=== PATIENT | male | born 1935 | race Caucasian/White ===

== ENCOUNTER 2017-08-03 14:35 | Inpatient (IN) | payer OTHER, MEDICAID ==
[~2017-08-03] VITALS: Ht 180.3 cm; Wt 83.9 kg
[~2017-08-03 14:35] MED LIST: ATENOLO PO; ATENOLOL50 MG PO; BUS5 PO; DICLOFENAC SODI75 MG PO; FLO4 PO; GLU850 PO; LIPI10 PO; LISINOPRIL AND1 TA2 PO; LISINOPRIL-HYDR1 TA1 PO; LORAZEPAM0.5 MG PO; METFORMIN HCL1000 MG PO; OMEPRAZOLE DR20 M1 PO; PAROXETINE HCL20 M1 PO; PAX20 PO; PRI20 PO; VOL50 PO
[2017-08-03 15:18] LABS: BASOPHIL % 0.5 % (0-2); PLATELET COUNT 349 x10^3mcL (130-400)
[2017-08-03 15:22] LABS: RED CELL DISTRIBUTION WIDTH 14.8 % (11.5-14.5)
[2017-08-03 15:25] LABS: CALCIUM 8.9 mg/dL (8.5-10.1); CARBON DIOXIDE 22.3 mmol/L (21-32); CHLORIDE SERUM 104 mmol/L (98-107); GLUCOSE SERUM 123 mg/dL (74-106); POTASSIUM SERUM 3.6 mmol/L (3.5-5.1); SODIUM SERUM 140 mmol/L (136-145)
[2017-08-03 15:30] LABS: ALBUMIN 3.3 g/dL (3.4-5.0); ALKALINE PHOSPHATASE 99 U/L (46-116); ALT/SGPT 21 U/L (16-63); AST/SGOT 17 U/L (15-37); BILIRUBIN TOTAL 0.5 mg/dL (0.20-1.00); CHOLESTEROL 148 mg/dL (<200); TOTAL PROTEIN, SERUM 6.7 g/dL (6.4-8.2)
[2017-08-03] MEDS ORDERED: DONEPEZIL HYDRO10 M2 PO (16:42)
[2017-08-03] MEDS ORDERED: B COMPLEX1 SGL PO (16:42)
[2017-08-03] MEDS ORDERED: SEROQUEL25 MG PO (16:42)
[2017-08-03] MEDS ORDERED: MASON NATURAL1000 IU PO (16:43)
[2017-08-03] MEDS ORDERED: ASPIR 8181 MG PO (16:43)
[2017-08-03] MEDS ORDERED: PHARMASSURE FO0.4 MG PO (16:43)
[2017-08-03 18:22] VITALS: BP 197/132
[2017-08-03 19:08] LABS: FREE T4 1.04 ng/dL (0.76-1.46); FREE THYROXINE INDEX 3.2 ug/dL (1.4-4.5); T4(THYROXINE) 9.4 ug/dL (4.7-13.3)
[2017-08-03 20:15] LABS: MAGNESIUM 1.7 mg/dL (1.8-2.4); PHOSPHOROUS 2.4 mg/dL (2.5-4.9)
[2017-08-03 20:30] VITALS: BP 153/74
[2017-08-03 20:30] LABS: T3 TOTAL 1.17 ng/mL
[2017-08-04 01:57] LABS: microscopic required? NO
[2017-08-04 02:13] LABS: UA SPECIFIC GRAVITY 1.015 (1.005-1.035); urine erythrocyte NEGATIVE (NEGATIVE)
[2017-08-04 02:23] LABS: AMPHETAMINE QUAL UR NONE DETECTED (NEG <=1000)
[2017-08-04 05:51] VITALS: BP 128/80
[2017-08-04 06:54] LABS: BASOPHIL % 0.6 % (0-2); PLATELET COUNT 300 x10^3mcL (130-400); RED CELL DISTRIBUTION WIDTH 14.7 % (11.5-14.5)
[2017-08-04 07:10] LABS: CALCIUM 8.6 mg/dL (8.5-10.1); CARBON DIOXIDE 26.8 mmol/L (21-32); CHLORIDE SERUM 106 mmol/L (98-107); CREATININE SERUM 0.9 mg/dL (0.7-1.3); GLUCOSE SERUM 127 mg/dL (74-106); MAGNESIUM 2.4 mg/dL (1.8-2.4); PHOSPHOROUS 3.4 mg/dL (2.5-4.9); POTASSIUM SERUM 3.8 mmol/L (3.5-5.1); SODIUM SERUM 142 mmol/L (136-145)
[2017-08-04 10:13] VITALS: BP 169/74
[2017-08-04 14:25] VITALS: BP 169/74
[2017-08-04 16:59] VITALS: BP 152/88
[2017-08-04 21:40] VITALS: BP 113/55
[2017-08-05 05:50] VITALS: BP 114/48
[2017-08-05 07:16] LABS: BASOPHIL % 0.5 % (0-2); PLATELET COUNT 268 x10^3mcL (130-400)
[2017-08-05 07:28] LABS: CALCIUM 8.4 mg/dL (8.5-10.1); CHLORIDE SERUM 106 mmol/L (98-107); CREATININE SERUM 1.5 mg/dL (0.7-1.3); GLUCOSE SERUM 120 mg/dL (74-106); POTASSIUM SERUM 4.3 mmol/L (3.5-5.1); SODIUM SERUM 142 mmol/L (136-145)
[2017-08-05 07:40] LABS: RED CELL DISTRIBUTION WIDTH 15.2 % (11.5-14.5)
[2017-08-05 09:25] VITALS: BP 128/71
[2017-08-05] MEDS ORDERED: TOP50 PO (14:25)
[2017-08-05] MEDS ORDERED: HCTZ/LISINOPRIL1 TA2 PO (14:27)
[2017-08-05] MEDS ORDERED: SEROQUEL100 MG PO (14:28)
[2017-08-05] MEDS ORDERED: RIS1 PO (14:29)
[2017-08-05 14:41] VITALS: BP 155/71
[2017-08-05 15:38] VITALS: BP 138/75; BP 155/71
[2017-08-05 17:39] VITALS: BP 159/69
== END 2017-08-05 18:50 | disposition home or self-care (01) | DRG 56 ==
LOC: ED 14:35 → DU 17:01
PROVIDERS: Emergency Medicine; Family Medicine
DX: G30.9 Alzheimer's disease, unspecified (principal); G93.41 Metabolic encephalopathy; F05 Delirium due to known physiological condition; D68.69 Other thrombophilia; F02.80 Dementia in other diseases classified elsewhere, unspecified severity, without behavioral disturbance, psychotic disturbance, mood disturbance, and anxiety; I16.0 Hypertensive urgency; K52.9 Noninfective gastroenteritis and colitis, unspecified; E11.59 Type 2 diabetes mellitus with other circulatory complications; E78.5 Hyperlipidemia, unspecified; F32.9 Major depressive disorder, single episode, unspecified; Z68.25 Body mass index [BMI] 25.0-25.9, adult; Z79.82 Long term (current) use of aspirin; Z79.84 Long term (current) use of oral hypoglycemic drugs
CPT/HCPCS: 83880; 84439; 90658; 97110-GP; 97116-GP; 97530-GP; G0480; J1956; J3475; J3490; J7030